=== PATIENT | male | born 1970 | race Hispanic/Latino ===

== ENCOUNTER 2017-03-21 06:45 | Emergency (ER) | payer OTHER ==
[2017-03-22 09:30] LABS: BASO % 0.3 % (0.0-2.0); EOS % 0.1 % (0.0-4.0); HEMATOCRIT 47.9 % (35.0-51.0); LYMPH # 0.9 K/uL (1.0-4.3); LYMPH % 7.2 % (20.0-40.0); MEAN CELL VOLUME 92.5 fl (80.0-94.0); MEAN CORPUSCULAR HEMOGLOBIN 30.2 pg (27.0-31.0); MEAN CORPUSCULAR HGB CONC 32.7 g/dL (33.0-37.0); MEAN PLATELET VOLUME 7.6 fl (7.2-11.7); MONO # 1.1 K/uL (0.0-0.8); MONO % 9.5 % (0.0-10.0); NEUT # 9.8 K/uL (1.8-7.0); NEUT % 82.9 % (50.0-75.0); WHITE BLOOD COUNT 11.8 K/uL (4.8-10.8)
[2017-03-22 11:15] LABS: ALB/GLOB RATIO 1.7 (1.0-2.1); ALT/SGPT 64 U/L (21-72); AST/SGOT 58 U/L (17-59); BILIRUBIN,TOTAL 1.3 mg/dl (0.2-1.3); BLOOD UREA NITROGEN 18 mg/dl (9-20); CALCIUM 9.6 mg/dL (8.4-10.2); CARBON DIOXIDE 20 mmol/L (22-30); CHLORIDE 104 mmol/L (98-107); GFR AFRICAN-AMERICAN > 60; GLUCOSE,RANDOM 96 mg/dL (75-110); POTASSIUM 4.8 MMOL/L (3.6-5.0); SODIUM 138 mmol/l (132-148)
[2017-03-22 11:16] LABS: ALKALINE PHOSPHATASE 88 U/L (38-126)
--- NOTE | 2017-03-22 23:09 | CARD ---
APPROVED REPORT EKG Measurement Heart [id number] <Conclusion> Normal sinus rhythm Biatrial enlargement Abnormal ECG
== END 2017-03-21 12:06 | disposition home or self-care (01) ==
LOC: H.ER 06:45 → H.EDERROR 06:45
DX: F41.9 Anxiety disorder, unspecified (principal)